=== PATIENT | female | born 1975 | race Caucasian/White ===

== ENCOUNTER 2016-09-29 19:10 | Observation (INO) | payer OTHER ==
[~2016-09-29] VITALS: Ht 162.6 cm; Wt 53.9 kg
[~2016-09-29 19:10] MED LIST: ASPIRIN 81 LOW81 MG PO; ASPIRIN ADULT L81 MG PO; ASPIRIN EC LOW81 MG PO; CITALOPRAM HYDR10 MG PO; COUMADIN1 MG PO; COUMADIN10 MG PO; COUMADIN2 MG PO; COUMADIN5 MG PO; DILAUDID2 MG PO; LEVOFLOXACIN250 MG PO; NORETHINDRONE; NORETHINDRONE PO; OXYCODONE HCL5 MG PO; PERCOCET1 TA1 PO; PHENERGAN EQUIV25 MG PO; PRAVACHOL20 MG; VALIUM10 MG PO
--- NOTE | 2016-09-29 19:58 | DIAGNOSTIC IMAGING REPORT ---
PROCEDURE: CT HEAD WITHOUT CONTRAST INDICATION: Altered mental status, initial encounter TECHNIQUE: Noncontrast axial images with sagittal and coronal reformations. COMPARISON: Head CT 04/16/2015 pawan FINDINGS: Mild cortical atrophy. Stable 2 cm lacunar infarct of the right internal capsule anterior limb and head of the right caudate nucleus. There is also no change in the small inferior right frontal cortical infarct. There is no acute CVA or hemorrhage. Visualized mastoids and sinuses are clear. IMPRESSION: 1. No acute intracranial abnormality 2. Stable 2 cm lacunar infarcts anterior limb of the right internal capsule, right head of the caudate nucleus and inferior right frontal lobe infarct 3. Results discussed with Dr. Oconnell at 07:30 p.m.
--- NOTE | 2016-09-29 20:40 | ED ORDER SUMMARY ---
..... Patient: SHAWN NAVARRETE OrderSheet [facility] VisitID: [id number] [place] [address] 41y, F Registration Date/Time: 09/29/2016 ORDER SHEET Weight: 57.1 kg (stated) Allergies: Hydrocodone, Penicillins GENERAL ORDERS: CT Head wo Cont Urgent (19:09/29/2016 Moy Adrian) (Ack 19:21 SBaldwin) (19:30 SBaldwin) Chest 1V Urgent (19:09/29/2016 Moy Adrian) (Ack 19:23 SBwin) (19:30 SBaldwin) Stamp Pad Maker (Continuous) (hx a fib. stroke symptoms. ) (19:09/29/2016 Moy Adrian) (19:25 HSoule) CBC w Diff Urgent (:09/29/2016 Moy Adrian) (Ack 19:23 LEWISjordana) (19:47 CFalkner R.N.) CMP Urgent (19:09/29/2016 Moy Adrian) (Ack 19:23 LEWISwin) (19:47 CFalkner R.N.) UA-Culture if indicated Urgent (:09/29/2016 Moy Adrian) (Ack 19:23 LEWISjordana) (19:47 CFalkner R.N.) PT with INR Urgent (19:09/29/2016 Moy Adrian) (Ack 19:23 Kev) (19:47 CFalkner R.N.) PTT Urgent (19:09/29/2016 Moy Adrian) (Ack 19:23 Kev) (19:47 CFalkner R.N.) D-Dimer Urgent (19:09/29/2016 Moy Adrian) (Ack 19:23 Kev) (19:47 CFalkner R.N.) Urine Drug Screen Urgent (19:09/29/2016 Moy Adrian) (Ack 19:23 Kev) (19:47 CFalkner R.N.) Urine Urgent (19:09/29/2016 Moy Adrian) (Ack 19:23 jordana) (19:47 CFalkner R.N.) TSH Urgent (19:22 09/29/2016 Moy Adrian) (Ack 19:23 jordana) (19:47 CFalkner R.N.) Serum Quantitative Urgent (19:22 09/29/2016 Moy Adrian) (Ack 19:23 jordana) (19:47 CFalkner R.N.) Pulse oximeter (19:22 09/29/2016 Moy Adrian) (19:25 HSoule) EKG - ER Stat (19:22 09/29/2016 Moy Adrian) (Ack 19:27 jordana) (19:35 HSoule) POC Glucose (19:22 09/29/2016 Moy Adrian) (Ack 19:27 jordana) (19:35 HSoule) Fibrinogen Level Urgent (19:51 09/29/2016 Moy Adrian) (Ack 19:53 SBwin) MEDICATION ORDERS: Phenergan IV 25 mg (HIGH ALERT MEDICATION, NOW) (20:18 09/29/2016 HSoule verbal order read back to Moy Adrian) (20:19 HSoule) IV FLUIDS: IV Saline Lock (19:22 09/29/2016 Moy Adrian) (19:36 HSoule) Zofran IV 4 mg (NOW) (19:58 09/29/2016 HSoule verbal order read back to Moy Adrian) (19:59 HSoule) IV NS with Normal Saline 1 Liter: initial bolus none -, then 1000 mL/hr for X1 (NOW) (20:18 09/29/2016 HSoule verbal order read back to Moy Adrian) (20:19 HSoule) ORDER SHEET NOTES: [Electronically signed by Yaneli Romero (02:08 09/30/2016)] [Electronically signed by Sukumar Oconnell Dr. (11:28 10/04/2016)] [Electronically locked/signed by Yaneli Romero (02:08 09/30/2016)]
--- NOTE | 2016-09-29 20:40 | ED CLINICAL REPORT ---
Clinical Report - Physicians/Mid Levels [facility] [address] [place] [address] 09/29/2016 19:11 Patient: SHAWN NAVARRETE Arrived- By private vehicle. Historian- patient. HISTORY OF PRESENT ILLNESS Chief Complaint: WEAKNESS and IMPAIRED SPEECH. 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 It was abrupt in onset and has been constant but is not gone now. The patient has had weakness. No numbness, tingling, visual disturbance, impaired swallowing or recent fall. She has had difficulty with speech (Hx strokes and a fib. On Warfarin). No difficulty walking. At its maximum deficit described as mild. When seen in the E.D., deficit described as mild. No altered mental status. Usually is alert and oriented X3 and has normal mobility. Similar symptoms previously: Recent medical care: The patient was seen recently by a health care provider. REVIEW OF SYSTEMS No chest pain, difficulty breathing or skin rash. All systems otherwise negative, except as recorded above. PAST HISTORY See nurses notes. Atrial fibrillation. SOCIAL HISTORY Never smoker. History of occasional drug use: marijuana. No alcohol use. No recent travel. Is a local resident. ADDITIONAL NOTES The nursing notes have been reviewed. PHYSICAL EXAM Vital Signs: 09/29/2016 19:12 BP: 152/81. HR: 105. RR: 20. O2 saturation: 97%. Oxygen saturation normal. Appearance: Alert. No acute distress. Head: Head atraumatic. Eyes: Pupils equal, round and reactive to light. ENT: Normal ENT inspection. Airway intact. Pharynx normal. Neck: Normal inspection. Neck supple. CVS: Normal heart rate and rhythm. Heart sounds normal. Pulses normal. Respiratory: No respiratory distress. Breath sounds normal. Abdomen: Soft and nontender. No organomegaly. Skin: Skin warm and dry. Normal skin color. No rash. Normal skin turgor. Extremities: Extremities exhibit normal ROM. No lower extremity edema. Neuro: Alert. Oriented X 3. Mood/affect normal. Speech normal. Cranial nerves normal (as tested). No cerebellar findings. No motor deficit. No sensory deficit. Reflexes normal. LABS, X-RAYS, AND EKG EKG: No acute process. No acute ischemia. Normal EKG. Normal sinus rhythm. Rate: 86. Normal P waves. Normal JERICA. Normal QRS complex. Normal axis. Normal ST and T waves, QT and QTc. The study has been interpreted contemporaneously. The study has been independently viewed by me. The EKG appears to be a good tracing. CT Head: (PROCEDURE: CT HEAD WITHOUT CONTRAST INDICATION: Altered mental status, initial encounter TECHNIQUE: Noncontrast axial images with sagittal and coronal reformations. COMPARISON: Head CT 04/16/2015 pawan FINDINGS: Mild cortical atrophy. Stable 2 cm lacunar infarct of the right internal capsule anterior limb and head of the right caudate nucleus. There is also no change in the small inferior right frontal cortical infarct. There is no acute CVA or hemorrhage. Visualized mastoids and sinuses are clear. IMPRESSION: 1. No acute intracranial abnormality 2. Stable 2 cm lacunar infarcts anterior limb of the right internal capsule, right head of the caudate nucleus and inferior right frontal lobe infarct). Head CT performed without contrast. The study was independently viewed by me and interpreted by the radiologist. The study was discussed with the radiologist (via pacs and phone). Laboratory Tests: UA-Culture if indicated: (LEANNE: 09/29/2016 19:43) ( MsgRcvd 09/29/2016 20:08) Final results Test Result Flag Units (Reference) URINE COLOR YELLOW URINE APPEARANCE CLEAR URINE GLUCOSE NEGATIVE (NEGATIVE) URINE BILIRUBIN NEGATIVE (NEGATIVE) URINE KETONE NEGATIVE (NEGATIVE) URINE SPECIFIC GRAVITY 1.025 (1.010-1.030) URINE PH 6.5 (5.0-8.0) URINE PROTEIN TRACE (NEGATIVE) URINE UROBILINOGEN 1.0 EU/dL (0.2-1.0) URINE NITRITE NEGATIVE (NEGATIVE) URINE BLOOD NEGATIVE (NEGATIVE) URINE LEUK ESTERASE NEGATIVE (NEGATIVE) URINE RBC 0-1 rbc/hpf (0-1) URINE WBC 0-1 wbc/hpf (0-1) URINE EPITHELIAL CELLS 0-1 EPI/hpf (0-5) URINE BACTERIA TRACE (<1+) (NONE SEEN) TRANSITIONAL EPITHELIAL CELLS 1-3/HPFMUCOUS 3+CATH URINE URINE COMMENT CULT NOT INDICATED URINE CULTURES ARE SET-UP BASED ON THE FOLLOWING CRITERIA:POSITIVE NITRITEPOSITIVE LEUKOCYTE ESTERASEGREATER THAN 10 WHITE BLOOD CELLSMODERATE (2+) OR GREATER BACTERIA Urine: (LEANNE: 09/29/2016 19:43) ( MsgRcvd 09/29/2016 19:53) Final results Test Result Flag Units (Reference) URINE NEGATIVE PT with INR: (LEANNE: 09/29/2016 19:30) ( MsgRcvd 09/29/2016 20:14) Final results Test Result Flag Units (Reference) INR 1.5 H (0.8-1.2) Low Intensity Therapy: INR 1.5-2.0 PT range 18.5-23.1Mod.Intensity Therapy: INR 2.0-3.0 PT range 23.1-31.5High Intensity Therapy: INR 2.5-3.5 PT range 27.4-35.5High Intensity Therapy 2: INR 3.0-4.0 PT range 31.5-39.3 APTT 35 H SECONDS (24-34) FIBRINOGEN 348 mg/dL (193-455) D-DIMER QUANTITATIVE < 0.27 L ug/mLFEU (0.27-0.52) The primary value of this quantitative assay relates toits negative predictive value (i.e. exclusion) of pulmonaryembolism/deep vein thrombosis/DIC.Elevated levels of d-dimer may also occur with:, age, cancer, inflammation, liver disease,post-op, infection, hematoma, coronary disease, peripheralarteriopathy, bleeding disorders and thrombolytic treatment.Results should be correlated with other clinical andradiological data.Testing Methodology: Latex Immunoassay . Pulse Oximetry: 09/29/2016 21:02 O2 saturation: 95%. Interpretation: normal. PROGRESS AND PROCEDURES Course of Care: the patient is a pleasant 41-year-old female comes get a past medical history including CVA nature fibrillation presenting for evaluation of generalized weakness and slurred speech. The patient reports that her symptoms are similar to prior CVAs. Patient will evaluated with CT scan of the head as well as stroke workup. Patient was called as a code stroke. Patient likely will not be candidate for TPA as patient reports being on warfarin. We're currently awaiting lab tests. Patient is agreeable to treatment plan. Patient is otherwise hemodynamically stable. Patient's workup was markable for an old CVA noted on CT scan. No acute findings. Because of the patient's history, patient is at high risk for having a bad outcome if discharge. Spoke to patient's primary care doctor who will accept the patient under his care. No further recommendations made. Patient's clinical course here in the emergency department is unchanged. Patient is agreeable to admission to the hospital. Explained to patient her diagnosis as well as workup and plan of care. All questions have been answered. Of note discussed with patient TPA and patient is not a candidate for TPA as she is on warfarin her INR is elevated at 1.5. Critical care performed (60 minutes). Time is exclusive of separately billable procedures. Time includes: direct patient care, patient reassessment, coordination of patient care, interpretation of data (laboratory data and pulse oximetry), review of patient's medical records, medical consultation and documentation of patient care. CLINICAL IMPRESSION Nontraumatic cerebrovascular accident- ischemic infarct involving an unknown intracranial artery. TPA was not administered . tPA was not administered because exclusion criteria were present. patient arrived in the emergency department less than 2 hours since time last known well. (Electronically signed by Sukumar Oconnell Dr. 10/04/2016 11:28)
--- NOTE | 2016-09-29 20:40 | ED NURSING NOTES ---
Clinical Report - Nurses [facility] [address] [place] [address] 09/29/2016 19:11 [id number] Triage time 19:12 Sep 29 2016. Acuity: LEVEL 2. Chief Complaint: WEAKNESS, NUMBNESS and IMPAIRED SPEECH. KANDY COMA SCORE: [place] Coma Scale: 15- eyes open spontaneously (4); best verbal response- oriented x 4 (5); best motor response- obeys commands (6). --19:16 Yaneli Romero 19:12 09/29/16. BP: 152/81. HR: 105. RR: 20. O2 saturation: 97%. --19:16 Yaneli Romero KANDY COMA SCORE: [place] Coma Scale. --19:30 Yaneli Romero 19:29 09/29/16. BP: 152/81. HR: 90. RR: 20. O2 saturation: 94% on room air. Pain level now: 02/09. --19:30 Yaneli Romero 19:41 09/29/16. Temp: 99.4 F. --19:41 Yaneli Romero 19:12 09/29/16. ( FAST negative upon triage to ER, Patient has risk factors for stroke. Code stroke called overhead.). --20:47 Yaneli Romero. Weight: 57.1 kg stated. Height/Length: 64 inches Per Patient. BMI: 21.6. --19:30 Yaneli Romero. Medications Citalopram Hydrobromide Oral (Tablet 20 mg) 1 tablet. Coumadin Oral, daily (M & F - 2 mg all other days 1 mg ). Dilaudid Oral (Tablet 2 mg). Norethindrone Oral 20 mg, daily. Percocet Oral 5/325 mg, daily, daily doses for pain plus some for breakthrough pain. Pravastatin Sodium Oral 20 mg, daily. Valium Oral 10 mg, daily. Zofran Oral, PRN. --19:13 Yaneli Romero Amitriptyline HCl Oral 50 mg, daily. --19:35 Yaneli Romero Lyrica Oral. --19:35 Yaneli Romero. Medication/allergy information source: the patient. --19:16 Yaneli Romero. Allergies Hydrocodone. Definite Moderate(nausea, rash) Penicillins. Definite Moderate(nausea, rash) --19:13 Yaneli Romero. History Arrived by private vehicle. This started just prior to arrival. Patient was last known well (1 hour ago). ( Patient reports that she began having weakness, numbness and slurred speech about one hour ago. She states that her family began to worry. She reports a history of atrial fibrillation and is on blood thinners.). FALL RISK ASSESSMENT: Fall risk assessment completed. No fall risk identified. NUTRITIONAL RISK ASSESSMENT: The nutritional risk assessment revealed no deficiencies. FUNCTIONAL ASSESSMENT: Functional assessment: no impairments noted. LEARNING NEEDS ASSESSMENT: The learning needs assessment revealed no barriers. SKIN INTEGRITY ASSESSMENT: Skin integrity risk assessment completed. No skin integrity risk identified. --19:16 Yaneli Romero ( Patient and family reports some trouble walking and confusion). --19:17 Yaneli Romero PAST MEDICAL HX: Immunizations: up-to-date. Last normal menstrual period- no periods. --19:30 Yaneli Romero SOCIAL HX: Never smoker. History of drug use: marijuana. No alcohol use. No infectious disease exposure. ABUSE ASSESSMENT: No report of abuse. NUTRITIONAL RISK ASSESSMENT: The nutritional risk assessment revealed no deficiencies. FUNCTIONAL ASSESSMENT: Functional assessment: no impairments noted. LEARNING NEEDS ASSESSMENT: The learning needs assessment revealed no barriers. FALL RISK ASSESSMENT: Fall risk assessment completed. Fall interventions initiated. Patient placed on stretcher. Side rails up x2. Brakes on Bed in low position. Patient visible from nurses' station. Family at bedside. Call light in reach of patient. Instructed not to get up without assistance; Patients gait is appears unsteady. SKIN INTEGRITY ASSESSMENT: Skin integrity risk assessment completed. No skin integrity risk identified. --19:31 Yaneli Romero. PROBLEMS: Gastroenteritis. TIA - Transient Ischemic Attack. Rectal Prolapse. Abdominal Pain. Immunizations. Mesinteric artery syndrome. CVA - Cerebrovascular Accident. Tetanus Status. Laceration. Foreign Body In Ear. Endometriosis. Irritable Bowel Syndrome. LNMP - Last Normal Menstrual Period. --19:13 Yaneli Romero. ADDITIONAL SURGERIES: Oophorectomy. Rectal prolapse. Superior mesenteric artery was wrapped around colol. --19:13 Yaneli Romero. Interventions ID band on patient. To treatment room. --19:16 Yaneli Romero. PHYSICAL ASSESSMENT 19:28 09/29/16. Patient gowned. ( patient exhibits slow speech). GENERAL / NEURO / PSYCH: Awake. Oriented X 4. Alert. Moves all extremities. No motor deficit. No sensory deficit. HEENT: Left-sided facial weakness. Pupils equal, round and reactive to light. CVS: Normal sinus rhythm noted. SKIN: Skin is intact, warm and dry. --19:28 Yaneli Romero GENERAL / NEURO / PSYCH: Awake. Oriented X 4. Decreased awareness (drowsy). Moves all extremities equally. No motor deficit. No sensory deficit. HEENT: Pupils equal, round and reactive to light. --20:45 Yaneli Romero. NURSING PROGRESS NOTES Patient transported to CT by stretcher with tech. (19:Sep 29 2016). --19:16 Yaneli Romero Patient returned from CT by stretcher with tech. (19:Sep 29 2016). --19:26 Yaneli Romero manufacture specialist, pulse oximeter and NIBP monitor placed on patient; monitor alarms on. Patient gowned. Reassurance given to the patient and parent(s). Two patient identifiers checked. Call light placed in reach. Side rails up x 1. Bed placed in lowest position. Brakes of bed on. Patient ready for evaluation- chart flagged and ED physician notified. --19:28 Yaneli Romero 19:14 09/29/2016 Site #1 started via IV in the right hand with an 20g angiocath; one attempt. Blood drawn: rainbow set. Labeled in the presence of the patient and sent to the lab. Saline lock flushed with 10 mL saline. --19:29 Yaneli Romero 19:29 09/29/2016 Site #2 started via IV in the right forearm with an 18g angiocath; one attempt. Blood drawn: rainbow set. Labeled in the presence of the patient and sent to the lab. Saline lock flushed with 10 mL saline. --19:29 Yaneli Romero Finger stick glucose: 95 mg/dL; ordered; performed by nurse; result shown to the ED physician. --19:32 Yaneli Romero EKG time: (19:35 Sep 29 2016). EKG was ordered, performed by a tech and shown to the ED physician. --19:35 Yaneli Romero ( Radiology at bedside). --19:35 Yaneli Romero EKG time: (21:37:54). EKG was performed by a tech and shown to the ED physician. --19:37 Rivas, Antony 19:41 09/29/16. BP: 122/71. HR: 82. RR: 22. O2 saturation: 94% on room air. --19:41 Yaneli Romero 8 fr in/out catheterization. During procedure hand hygiene observed and sterile equipment and aseptic technique used. Return of yellow-colored clear urine. She tolerated procedure well. --19:42 Yaneli Romero 19:59 09/29/2016 Zofran (Ondansetron HCl) IVP 4 mg given over 1 minute(s) via site #1. Allergies verified and confirmed 5 rights. IV patency established. IV site checked: no pain, redness, or swelling. IV flushed thoroughly pre- and post-medication administration. IVP given by RN. --19:59 Yaneli Romero ( Provider at bedside discussing plan of care with patient and family). --19:59 Yaneli Romero 20:19 09/29/2016 Started bag #1 1000 mL IV Fluids IV NS (Saline); at 1000 mL/hr over 1 hour(s) via site #1 via IV pump. Allergies verified and confirmed 5 rights. IV patency established. IV site checked: no pain, redness, or swelling. IV flushed thoroughly pre- and post-medication administration. --20:19 Yaneli Romero 20:19 09/29/2016 PHENERGAN (Promethazine HCl) IVP 25 mg given diluted in NS 20mL over 2 minute(s) via site #2. Allergies verified and confirmed 5 rights. IV patency established. IV site checked: no pain, redness, or swelling. IV flushed thoroughly pre- and post-medication administration. IVP given by RN. --20:19 Yaneli Romero 20:32 09/29/16. BP: 111/65. HR: 74. RR: 18. O2 saturation: 93% on room air. --20:33 Yaneli Romero 21:09/29/2016 IV Fluids IV NS Continued: upon admission at the rate of 999 mL/hr. 400 mL remaining bag #1. IV patency established. IV site checked: no pain, redness, or swelling. IV flushed thoroughly. --21:09 Yaneli Romero. DISPOSITION / DISCHARGE 21:09/29/16. BP: 104/55. HR: 72. RR: 17. O2 saturation: 95% on room air. Temp: 99.5 F (oral). Pain level now: 02/09. --21:03 Yaneli Romero Report was given to a nurse via a phone call. Report included patient's care, treatment, medications, reviewed medication reconcilliation, and condition (including any recent changes or anticipated changes). All questions were answered. Report was acknowledged and care was transferred. (Maria Esther). --21:08 Yaneli Romero Admitted. Patient's personal items include: shirt, pants, shoes and purse; items were placed in belongings bag and transported with the patient. --21:08 Yaneli Romero 21:09/29/2016 Site #[address] upon admission; patent, no pain and no signs of infection or infiltration; flushes easily. --21:09 Yaneli Romero 21:09/29/2016 Site #[address] upon admission; patent, no pain and no signs of infection or infiltration; flushes easily. --21:09 Yaneli Romero. Locked/Released at 09/30/2016 2:08 by Yaneli Romero,
--- NOTE | 2016-09-29 20:40 | ED ORDER SUMMARY ---
..... Patient: SHAWN NAVARRETE OrderSheet [facility] VisitID: [id number] [place] [address] 41y, F Registration Date/Time: 09/29/2016 ORDER SHEET Weight: 57.1 kg (stated) Allergies: Hydrocodone, Penicillins GENERAL ORDERS: CT Head wo Cont Urgent (19:09/29/2016 Moy Adrian) (Ack 19:21 SBaldwin) (19:30 SBaldwin) Chest 1V Urgent (19:09/29/2016 Moy Adrian) (Ack 19:23 SBwin) (19:30 SBaldwin) Mortgage Specialist (Continuous) (hx a fib. stroke symptoms. ) (19:09/29/2016 Moy Adrian) (19:25 HSoule) CBC w Diff Urgent (:09/29/2016 Moy Adrian) (Ack 19:23 LEWISjordana) (19:47 CFalkner R.N.) CMP Urgent (19:09/29/2016 Moy Adrian) (Ack 19:23 LEWISwin) (19:47 CFalkner R.N.) UA-Culture if indicated Urgent (:09/29/2016 Moy Adrian) (Ack 19:23 LEWISjordana) (19:47 CFalkner R.N.) PT with INR Urgent (19:09/29/2016 Moy Adrian) (Ack 19:23 Kev) (19:47 CFalkner R.N.) PTT Urgent (19:09/29/2016 Moy Adrian) (Ack 19:23 Kev) (19:47 CFalkner R.N.) D-Dimer Urgent (19:09/29/2016 Moy Adrian) (Ack 19:23 Kev) (19:47 CFalkner R.N.) Urine Drug Screen Urgent (19:09/29/2016 Moy Adrian) (Ack 19:23 Kev) (19:47 CFalkner R.N.) Urine Urgent (19:09/29/2016 Moy Adrian) (Ack 19:23 jordana) (19:47 CFalkner R.N.) TSH Urgent (19:22 09/29/2016 Moy Adrian) (Ack 19:23 jordana) (19:47 CFalkner R.N.) Serum Quantitative Urgent (19:22 09/29/2016 Moy Adrian) (Ack 19:23 jordana) (19:47 CFalkner R.N.) Pulse oximeter (19:22 09/29/2016 Moy Adrian) (19:25 HSoule) EKG - ER Stat (19:22 09/29/2016 Moy Adrian) (Ack 19:27 jordana) (19:35 HSoule) POC Glucose (19:22 09/29/2016 Moy Adrian) (Ack 19:27 jordana) (19:35 HSoule) Fibrinogen Level Urgent (19:51 09/29/2016 Moy Adrian) (Ack 19:53 SBwin) MEDICATION ORDERS: Phenergan IV 25 mg (HIGH ALERT MEDICATION, NOW) (20:18 09/29/2016 HSoule verbal order read back to Moy Adrian) (20:19 HSoule) IV FLUIDS: IV Saline Lock (19:22 09/29/2016 Moy Adrian) (19:36 HSoule) Zofran IV 4 mg (NOW) (19:58 09/29/2016 HSoule verbal order read back to Moy Adrian) (19:59 HSoule) IV NS with Normal Saline 1 Liter: initial bolus none -, then 1000 mL/hr for X1 (NOW) (20:18 09/29/2016 HSoule verbal order read back to Moy Adrian) (20:19 HSoule) ORDER SHEET NOTES: [Electronically signed by Yaneli Romero (02:08 09/30/2016)] [Electronically signed by Sukumar Oconnell Dr. (11:28 10/04/2016)] [Electronically locked/signed by Yaneli Romero (02:08 09/30/2016)]
[2016-09-29] MEDS ORDERED: LYRICA20 MG/ML (21:23)
[2016-09-29] MEDS ORDERED: AMITRIPTYLINE H25 MG PO (21:24)
--- NOTE | 2016-09-29 21:32 | DIAGNOSTIC IMAGING REPORT ---
PROCEDURE: XR CHEST 1 VIEW INDICATION: STROKE SYMPTOMS TECHNIQUE: Portable AP view 07:24 p.m. COMPARISON: Chest x-ray 04/16/2015. FINDINGS: Poor inspiration with minor left basilar atelectasis. Heart and mediastinum are normal. Thorax is normal. IMPRESSION: 1. Poor inspiration with minor left basilar atelectasis.
[2016-09-29 21:34] VITALS: BP 111/58
[2016-09-29] MEDS ORDERED: ZOFRAN4 MG PO (22:42)
--- NOTE | 2016-09-29 22:55 | NUR ---
REMOVED 18 G IV IN R HAND DUE TO CATHETER SLIPPING OUT. CATHETER INTACT, PT TOLERATED WELL.
--- NOTE | 2016-09-30 00:02 | NUR ---
ALERT, ORIENTED C/O 9/10 LOWER ABDOMEN AND L BACK CRAMPING/ STABBING PAIN.MORPHINE 2 MG IV GIVEN FROM PREVIOUS SHIFT @ 2200. ANOTHER 2MG MORPHINE IV GIVEN AT THIS TIME.
[2016-09-30 02:04] VITALS: BP 97/58
--- NOTE | 2016-09-30 03:17 | HISTORY AND PHYSICAL ---
ADMITTED: 09/29/2016 CHIEF COMPLAINT: 1. Numbness 2. Slurred speech 3. Slight weakness HISTORY OF PRESENT ILLNESS: The patient is a 41-year-old white female who has had a history of a right-sided CVA occurring in 2012, felt to be due to an embolic cause, possibility of transient atrial fibrillation. She had quite significant left- sided weakness and slurred speech and tingling in her left arm when this occurred. She has been quite worried about having recurrence of symptoms ever since. She did develop some problems with intermittent slightly slurred speech, tingling in the left arm and some difficulty with [id number]-zo-[id number] testing. These symptoms have been ongoing for the last 48 hours or so. She felt okay this morning and then got up from a nap early this afternoon and felt worse with some recurrence of the tingling and slightly slurred speech and difficulty with jrngvr-sg-dbba testing. She and her family were concerned and brought her into the emergency department for evaluation. She has been on warfarin to prevent any recurrent emboli. She also is on low-dose aspirin. She does smoke cigarettes now and then. She has had a slightly elevated cholesterol level and is on pravastatin currently to lower this. She has not had any evidence of recurrence of atrial fibrillation since the time of her original stroke. She has had a number of similar episodes to this one that have seemed to be related more to weakness and possibly some periinfarct neurologic dysfunction associated with numbness and weakness. When she came into the emergency department, she had minimal symptoms. She did have a brain CT scan done, which showed the old infarcts, but no new changes with any new strokes. She has subsequently been admitted to observation and is now feeling somewhat better. In addition to these symptoms, the patient does relate that she has had the onset of a cold and has had cough and chest congestion and thus started to cough up some yellowish phlegm. She has felt generally weak and somewhat out of sorts from this, though she has not had high fevers or chills. She thinks this might be contributing somewhat to her problems. MEDICAL/SURGICAL HISTORY: Past medical history: Remarkable for longstanding endometriosis, starting when she was a teenager. She has had a number of surgeries done for this and eventually ended up having problems with rectal prolapse and in an attempt to correct this, developed an intra-abdominal hematoma and infection and then Clostridium difficile enteritis. She ended up being hospitalized at the [facility] for nearly 1 month before she finally got better. She has subsequently had a diagnosis of superior mesenteric artery stenosis and had surgery to take care of this and also at the same time to take care of her problems of rectal prolapse, and she has done quite a bit better since then. Other problems include the history of transient atrial fibrillation and ongoing problems with endometriosis, which has been stabilized with use of high-dose norethindrone. Past surgical history is remarkable for multiple laparoscopic surgeries for endometriosis, surgery for rectal prolapse complicated by development of a hematoma and Clostridium difficile infection, bilateral oophorectomy, and superior mesenteric artery stenosis done in 08/2012. She also has had 2 normal pregnancies and deliveries, one in 1996 and one in 2008. MEDICATIONS: 1. Warfarin 2 mg Monday and Monday, and 1 mg all other days. 2. Norethindrone 20 mg q.a.m. to control endometriosis. 3. Citalopram 20 mg daily for depression. 4. Amitriptyline 50 mg in the evening to help with sleeping and to help with depression. 5. Oxycodone 5/APAP 325 one or 2 tablets 3-4 times daily for abdominal pain and pelvic pain. 6. Hydromorphone 2 mg tablets one 3 times a day as needed for severe breakthrough pain. 7. Pravastatin 20 mg daily for cholesterol control. 8. Diazepam 10 mg strength one 3 times daily for controlling abdominal cramping and anxiety. 9. Aspirin 81 mg daily. ALLERGIES: 1. PENICILLIN. 2. HYDROCODONE. SOCIAL HISTORY: The patient is and lives with her and with her mother and father -in-law. She still smokes a little bit, though she is trying to stop. She uses marijuana fairly frequently to help with stomach issues and nausea and pain control. She does not drink alcohol. FAMILY HISTORY: Remarkable for a father who is in his 60s and has some COPD issues. The patient's mother developed breast cancer and from this around age 50. REVIEW OF SYSTEMS: HEENT has been remarkable for some nasal congestion and drainage and a slight sore throat. Respiratory is remarkable for a cough that is productive of some yellowish sputum and some intermittent slight wheezing that she has noticed over the last day or two. Cardiovascular is okay. Gastrointestinal is remarkable for some lower abdominal cramping and discomfort, but no diarrhea or vomiting. Cardiovascular is okay. Genitourinary is remarkable for some occasional vaginal spotting. She also has chronic pelvic pain and has developed some problems with mild vaginal prolapse. She is passing her urine okay. Musculoskeletal is okay with no major pain issues. Neurologic is as noted above. Psychiatric is remarkable for some [id number] depression has been improving with the use of citalopram and recent addition of the amitriptyline. Skin is okay. PHYSICAL EXAMINATION: VITAL SIGNS: Shows temperature to be 98.4. Blood pressure is in the 111/50-60 range. Pulse is 66. Oxygen saturation on room air is 93%. HEENT: Head is normal. Ear canals and tympanic membranes are normal. Eyes show pupils equal, round, and reactive to light. Nose and throat are clear. NECK: Supple with no bruits. CHEST: Reveals bilateral rhonchi, more on the left than the right with some faint scattered expiratory wheezes. BREASTS: Not checked. There is no axillary adenopathy. HEART: Reveals normal S1 and S2 with no distinct murmur. Heart exam shows no other abnormalities. ABDOMEN: Reveals some slight upper abdominal tenderness. Bowel tones are quite active. PELVIC: Not done. RECTAL: Not done. EXTREMITIES: Normal. NEUROLOGIC: Reveals the patient to be alert and oriented x3. Speech is currently normal. Cranial nerves are normal. There is no drift. Ttzmwq-ns-srxv testing is intact. Deep tendon reflexes are symmetric. SKIN: Normal. LAB/IMAGING: Laboratory studies show hemoglobin to be 13.5, hematocrit is 40.7, white blood cell count is quite elevated at 21,000, polys 74%, lymphs 15.3%. Sodium is 139, potassium 3.6, chloride 104, CO2 27, glucose 106, BUN 13, creatinine 0.9. Total bilirubin is 0.3. SGOT is 46, SGPT is 76, alkaline phosphatase is 56. Urine test is negative. Chest x-ray shows some left basilar atelectasis versus early infiltrate. Brain CT scan shows old right internal capsule lacunar infarct with associated right nucleus caudate and right inferior frontal lobe areas involved as well. IMPRESSION: 1. The patient's neurologic symptoms most likely represents dysfunction in the brain, around the site of the original stroke, possibly triggered by her development of low-grade bronchitis, cold symptoms, and general fatigue. There is not any evidence of a new stroke. 2. Other problems include questionable history of atrial fibrillation. 3. Chronic pelvic pain and lower abdominal pain related to endometriosis. 4. The patient does seem to have an acute mild bronchitis and mild bronchospasm. 5. Other problems include depression. 6. Hyperlipidemia. PLAN: The patient is hospitalized for observation. She will continue with warfarin, with aspirin, and with Pravastatin. Protime will be rechecked in the morning and the white blood cell count will be rechecked in the morning. The patient will be started on azithromycin for low-grade bronchitis. She will keep up with her other usual medications.
--- NOTE | 2016-09-30 06:23 | NUR ---
ALERT AND ORIENTED, SPEECH CLEAR. GAIT STEADY. MAKES NEEDS KNOWN. NEURO CHECKS WITHIN NORMAL LIMITS.
[2016-09-30 06:53] VITALS: BP 105/64
[2016-09-30] MEDS ORDERED: ZITHROMAX250 MG PO (08:44)
--- NOTE | 2016-09-30 08:53 | Provider's Discharge Care Plan ---
Problem, Goal, Plan Problem List 1. Cerebrovascular accident, embolic Goals: Improve disease control, Improve function, Improved health/wellness, Increase independence Instructions: Follow up as directed, Increase activity level, Take meds as directed, Stop smoking, Take warfarin and aspirin as ordered. 2. Endometriosis Goals: Improve disease control, Improve function, Improved health/wellness, Increase independence Instructions: Follow up as directed, Increase activity level, Take meds as directed, Stop smoking, continu norethndrone 20 mg daily 3. A-fib Goals: Improve disease control, Improve function, Improved health/wellness, Increase independence Instructions: Follow up as directed, Increase activity level, Take meds as directed, Reduce stress, Stop smoking, continue warfarin at 2 mg , , and 1 mg , , ,. 4. Bronchopneumonia Goals: Improve disease control, Improve function, Improved health/wellness, Increase independence Instructions: Follow up as directed, Increase activity level, Take meds as directed, Reduce stress, Stop smoking, Take azithromycin as ordered.
[2016-09-30 10:43] VITALS: BP 111/76
--- NOTE | 2016-09-30 12:29 | NUR ---
Nutrition Note: Received nutrition consult for warfarin/vitamin K education. Met with pt today and gave nutrition education and provided a handout. Pt states she has been taking warfarin for about 5 yrs, and has no questions. Pt states her metabolism has been increased in recent yrs with some slight wt loss. Discussed consuming meals and snacks frequently throughout the day, and high kcal foods as needed. Pt reports good appetite in CVH, and has no issues feeding self. RD will continue to follow for additional nutrition concerns, per protocol.
[2016-09-30 14:33] VITALS: BP 111/69
--- NOTE | 2016-09-30 15:27 | NUR ---
1500: PT WENT INTO A SHORT RUN OF A-FIB AND ASYMTOMATIC. SWITCHED RIGHT BACK INTO SR. DR BURK NOTIFIED AND NO NEW ORDERS RECEIVED. WILL DC PT AFTER DINNER THIS PM.
--- NOTE | 2016-09-30 18:44 | NUR ---
PT DISCHARGED TO HOME AT 1830. FATHER HERE TO TRANSPORT PT HOME. ALL BELONGINGS GATHERED BY PT AND TAKEN BY PT. ALL DISCHARGE INSTRUCTIONS AND PAPERWORK EXPLAINED TO PT AND TAKEN HOME BY PT ALONG WITH ONE NEW PRESCRIPTION. PT STATED SHE HAD NO QUESTIONS. PIV REMOVED AND BLEEDING STOPPED. ALL PERSONAL MEDICATIONS RETURNED TO PT FROM PHARMACY AND OMNICELL AND PT CONFIRMS THAT ALL MEDICATIONS ARE ACCOUNTED FOR. PT AMBULATED TO FRONT ENTRANCE WITH FATHER AND MOBILE PHLEBOTOMIST ESCORT.
--- NOTE | 2016-10-04 11:28 | ED DISCHARGE INSTRUCTIONS ---
Patient: SHAWN NAVARRETE General Instructions [facility] VisitID: [id number] [address] [place] [address] 41y, F Registration Date/Time: 09/29/2016 Nontraumatic cerebrovascular accident- ischemic infarct involving an unknown intracranial artery. TPA was not administered . tPA was not administered because exclusion criteria were present. patient arrived in the emergency department less than 2 hours since time last known well. (Electronically signed by Sukumar Oconnell Dr. 10/04/2016 11:28)
--- NOTE | 2016-10-04 11:28 | ED MED RECONCILIATION SUMMARY ---
Patient: SHAWN NAVARRETE Medication Reconciliation Report [facility] VisitID: [id number] [address] [place] [address] 41y, F Registration Date/Time: 09/29/2016 Weight: 57.1 kg Height/Length: 64 in. BMI: 21.6 ALLERGIES: Hydrocodone, Penicillins The patient's Home Medications are listed below: THE FOLLOWING MEDICATIONS NEED TO BE RECONCILED: Amitriptyline HCl Oral 50 mg, daily Citalopram Hydrobromide Oral (20 mg) 1 tablet Coumadin Oral, daily, M & F - 2 mgall other days 1 mg Dilaudid Oral (2 mg) Lyrica Oral Norethindrone Oral 20 mg, daily Percocet Oral 5/325 mg, daily, daily doses for pain plus some for breakthrough pain Pravastatin Sodium Oral 20 mg, daily Valium Oral 10 mg, daily Zofran Oral, PRN The source(s) of the original Home Medication information: patient The following Medications were given to the patient in the Emergency Department: Zofran [IVP] IVP 4 mg, administered: 09/29/2016 7:59:00 PM IV NS IV Fluids bolus 0, then 1000 mL/hr, administered: 09/29/2016 8:19:00 PM PHENERGAN [IVP] IVP 25 mg diluted in NS 20 mL, administered: 09/29/2016 8:19:00 PM The following Medications were prescribed to the patient: None.
--- NOTE | 2016-10-04 11:28 | ED MAR SUMMARY ---
..... Medication Administration Record [facility] [address] [place] [address] Patient: SHAWN NAVARRETE Visit ID: [id number] 41y, F Weight: 57.1 kg Height/Length: 64 in BMI: 21.6 ALLERGIES: Hydrocodone, Penicillins Given 19:59 09/29/2016 Yaneli Romero, Medication Administered: ZOFRAN [IVP] (ONDANSETRON HCL), Dose: 4 mg IVP over 1 minute(s), Site: #1 right hand. Medication Ordered: Zofran IV 4 mg (NOW). Start 20:19 09/29/2016 Yaneli Romero,, Continued Upon Admission 21:09 09/29/2016 Yaneli Romero, Medication Administered: IV NS (SALINE), Dose: IV Fluids over 1 hour(s), Rate: 1000 mL/hr, Dispensed: 1000 mL bag, Site: #1 right hand. Medication Ordered: IV NS with Normal Saline 1 Liter: initial bolus none -, then 1000 mL/hr for X1 (NOW). Given 20:19 09/29/2016 Yaneli Romero, Medication Administered: PHENERGAN [IVP] (PROMETHAZINE HCL), Dose: 25 mg IVP over 2 minute(s), In: NS 20 mL, Site: #2 right forearm. Medication Ordered: Phenergan IV 25 mg (HIGH ALERT MEDICATION, NOW).
--- NOTE | 2016-10-04 11:28 | ED DISCHARGE INSTRUCTIONS ---
Patient: SHAWN NAVARRETE General Instructions [facility] VisitID: [id number] [address] [place] [address] 41y, F Registration Date/Time: 09/29/2016 Nontraumatic cerebrovascular accident- ischemic infarct involving an unknown intracranial artery. TPA was not administered . tPA was not administered because exclusion criteria were present. patient arrived in the emergency department less than 2 hours since time last known well. (Electronically signed by Sukumar Oconnell Dr. 10/04/2016 11:28)
--- NOTE | 2016-10-04 11:28 | ED MAR SUMMARY ---
..... Medication Administration Record [facility] [address] [place] [address] Patient: SHAWN NAVARRETE Visit ID: [id number] 41y, F Weight: 57.1 kg Height/Length: 64 in BMI: 21.6 ALLERGIES: Hydrocodone, Penicillins Given 19:59 09/29/2016 Yaneli Romero, Medication Administered: ZOFRAN [IVP] (ONDANSETRON HCL), Dose: 4 mg IVP over 1 minute(s), Site: #1 right hand. Medication Ordered: Zofran IV 4 mg (NOW). Start 20:19 09/29/2016 Yaneli Romero,, Continued Upon Admission 21:09 09/29/2016 Yaneli Romero, Medication Administered: IV NS (SALINE), Dose: IV Fluids over 1 hour(s), Rate: 1000 mL/hr, Dispensed: 1000 mL bag, Site: #1 right hand. Medication Ordered: IV NS with Normal Saline 1 Liter: initial bolus none -, then 1000 mL/hr for X1 (NOW). Given 20:19 09/29/2016 Yaneli Romero, Medication Administered: PHENERGAN [IVP] (PROMETHAZINE HCL), Dose: 25 mg IVP over 2 minute(s), In: NS 20 mL, Site: #2 right forearm. Medication Ordered: Phenergan IV 25 mg (HIGH ALERT MEDICATION, NOW).
--- NOTE | 2016-10-04 11:28 | ED MED RECONCILIATION SUMMARY ---
Patient: SHAWN NAVARRETE Medication Reconciliation Report [facility] VisitID: [id number] [address] [place] [address] 41y, F Registration Date/Time: 09/29/2016 Weight: 57.1 kg Height/Length: 64 in. BMI: 21.6 ALLERGIES: Hydrocodone, Penicillins The patient's Home Medications are listed below: THE FOLLOWING MEDICATIONS NEED TO BE RECONCILED: Amitriptyline HCl Oral 50 mg, daily Citalopram Hydrobromide Oral (20 mg) 1 tablet Coumadin Oral, daily, M & F - 2 mgall other days 1 mg Dilaudid Oral (2 mg) Lyrica Oral Norethindrone Oral 20 mg, daily Percocet Oral 5/325 mg, daily, daily doses for pain plus some for breakthrough pain Pravastatin Sodium Oral 20 mg, daily Valium Oral 10 mg, daily Zofran Oral, PRN The source(s) of the original Home Medication information: patient The following Medications were given to the patient in the Emergency Department: Zofran [IVP] IVP 4 mg, administered: 09/29/2016 7:59:00 PM IV NS IV Fluids bolus 0, then 1000 mL/hr, administered: 09/29/2016 8:19:00 PM PHENERGAN [IVP] IVP 25 mg diluted in NS 20 mL, administered: 09/29/2016 8:19:00 PM The following Medications were prescribed to the patient: None.
== END 2016-09-30 18:30 | disposition home or self-care (01) ==
LOC: ED SRH 19:10 → ACUTE2 SRH 20:46 → TRANS SRH 20:46 → ACUTE2 SRH 21:25
PROVIDERS: ADMIT Student in an Organized Health Care Education/Training Program
DX: R47.1 Dysarthria and anarthria (principal); R53.1 Weakness; R20.0 Anesthesia of skin; Z86.73 Personal history of transient ischemic attack (TIA), and cerebral infarction without residual deficits; I48.91 Unspecified atrial fibrillation; Z79.01 Long term (current) use of anticoagulants; E78.00 Pure hypercholesterolemia, unspecified; J40 Bronchitis, not specified as acute or chronic; Z72.0 Tobacco use; F32.9 Major depressive disorder, single episode, unspecified
CPT/HCPCS: 29230; 29247; 29263; 81460; 90004; 90074; 90098; 90100; 90197; 91556; 92760; 92761; 92762; 92763; 92764; 92765; 92766; 92767; 93070; 93140; 94001; 94050; 94060; 95059